=== PATIENT | female | born 1990 | race African-American/Black ===

== ENCOUNTER 2016-08-21 19:23 | Emergency (ER) | payer MEDICAID ==
[~2016-08-21] VITALS: Ht 165.1 cm; Wt 53.0 kg
[2016-08-21 19:53] VITALS: BP 109/78
[2016-08-21] MEDS ORDERED: BACITRACIN ZINC OINT UDPKT TOP ONE (20:00)
[2016-08-21] MEDS ORDERED: KETOROLAC 60MG/2ML VIAL IM ONE (22:15)
== END 2016-08-22 02:14 | disposition left against medical advice (07) ==
LOC: ER 19:23
DX: S81.811D Laceration without foreign body, right lower leg, subsequent encounter (principal); X58.XXXD Exposure to other specified factors, subsequent encounter; Y92.89 Other specified places as the place of occurrence of the external cause; Y99.8 Other external cause status
CPT/HCPCS: 81025; 99282; J1885

== ENCOUNTER 2016-08-22 15:17 | Emergency (ER) | payer MEDICAID ==
[~2016-08-22] VITALS: Ht 165.1 cm; Wt 55.0 kg
[2016-08-22 15:30] VITALS: BP 115/77
== END 2016-08-22 20:47 | disposition left against medical advice (07) ==
LOC: ER 20:02
DX: S91.011D Laceration without foreign body, right ankle, subsequent encounter (principal); Z53.21 Procedure and treatment not carried out due to patient leaving prior to being seen by health care provider; X58.XXXA Exposure to other specified factors, initial encounter; Y93.89 Activity, other specified; Y99.8 Other external cause status; Y92.89 Other specified places as the place of occurrence of the external cause

== ENCOUNTER 2024-07-14 23:51 | Emergency (ER) | payer MEDICAID ==
[~2024-07-14] VITALS: Ht 167.6 cm; Wt 73.0 kg
[2024-07-14 23:59] VITALS: O2SAT 100
[2024-07-15 00:13] VITALS: BP 135/90; PULSE 85; RESP 20; TEMP 36.9; O2SAT 99
[2024-07-15] MEDS: DICYCLOMINE HCL 10MG/ML 2ML VIAL IM STA (00:50)
[2024-07-15 00:56] LABS: BASOPHILS % 0.6 % (0.0-2.0); EOSINOPHILS % 0.2 % (0.0-5.0); HEMATOCRIT. 37.8 % (36.0-48.0); HEMOGLOBIN. 12.7 g/dL (12.0-16.0); LYMPHOCYTES % 18.3 % (20.0-50.0); MEAN CORPUSCULAR HEMOGLOBIN 30.1 pg (28.0-32.0); MEAN CORPUSCULAR HGB CONC 33.6 g/dL (31.0-37.0); MEAN CORPUSCULAR VOLUME 89.4 fL (81.0-99.0); MEAN PLATELET VOLUME 8.1 fl (7.4-10.4); MONOCYTES % 5.2 % (2.0-8.0); NEUTROPHILS % 75.7 % (40.0-76.0); PLATELET 272 x1000/uL (130-400); RED BLOOD CELL COUNT 4.23 mill/uL (4.2-5.4)
[2024-07-15] MEDS: FAMOTIDINE 20MG/2ML VIAL IV ONE (01:00)
[2024-07-15 01:11] LABS: CHLORIDE 108 mEq/L (98-107); POTASSIUM 3.7 mEq/L (3.5-5.1); SODIUM 142 mEq/L (136-145)
[2024-07-15 01:12] LABS: CALCIUM 9.7 mg/dL (8.7-10.4); CARBON DIOXIDE 27 mEq/L (21-32)
[2024-07-15 01:17] LABS: GLUCOSE 108 mg/dL (70-105); UREA NITROGEN BLOOD 12 mg/dL (9-23)
[2024-07-15 01:18] LABS: ETHANOL BLOOD < 10 mg/dL (<10)
[2024-07-15 01:19] LABS: ALANINE AMINOTRANSFERASE 15 IU/L (10-49); ALBUMIN 5.1 g/dL (3.2-4.8); ASPARTATE AMINOTRANSFERASE 20 IU/L (<34); BILIRUBIN DIRECT 0.2 mg/dL (<=3.0); BILIRUBIN TOTAL 0.5 mg/dL (0.1-1.0)
[2024-07-15 01:20] LABS: PROTEIN TOTAL 8.1 g/dL (6.0-8.3)
[2024-07-15 01:42] LABS: HCG SCREEN NEGATIVE
[2024-07-15] MEDS: SODIUM CHLORIDE 0.9% 1,000 ML IV ONE (02:12)
[2024-07-15] MEDS: ONDANSETRON HCL 4MG/2ML INJ IV ONE (02:12)
== END 2024-07-15 02:30 | disposition home or self-care (01) ==
LOC: ER 23:51
DX: R11.2 Nausea with vomiting, unspecified (principal); F12.90 Cannabis use, unspecified, uncomplicated
CPT/HCPCS: 99283; 80076; 80048; 80320; 84703; 83690; 85025; 36415; 96372; J0500; J2405; J7030; Z7610 ×2; J3490; G0480

== ENCOUNTER 2024-09-22 12:47 | Emergency (ER) | payer MEDICAID ==
[~2024-09-22] VITALS: Ht 160 cm; Wt 72.5 kg
[2024-09-22 12:52] VITALS: O2SAT 99
[2024-09-22 13:21] LABS: CLARITY URINE CLEAR (CLEAR); COLOR URINE YELLOW (YELLOW); GLUCOSE URINE NEGATIVE (NEGATIVE); KETONES URINE TRACE (NEGATIVE); LEUKOCYTE ESTERASE URINE NEGATIVE (NEGATIVE); NITRITE URINE NEGATIVE (NEGATIVE); OCCULT BLOOD URINE NEGATIVE (NEGATIVE); PH URINE 6.5 (4.5-8.0); PROTEIN URINE TRACE (NEGATIVE); SPECIFIC GRAVITY URINE 1.027 (1.005-1.030); UROBILINOGEN URINE 1.0 E.U./dL (0.2-1.0)
[2024-09-22 13:26] LABS: BASOPHILS % 0.8 % (0.0-2.0); EOSINOPHILS % 0.8 % (0.0-5.0); HEMATOCRIT. 36.1 % (36.0-48.0); HEMOGLOBIN. 11.9 g/dL (12.0-16.0); LYMPHOCYTES % 43.4 % (20.0-50.0); MEAN PLATELET VOLUME 8.3 fl (7.4-10.4); MONOCYTES % 10.6 % (2.0-8.0); NEUTROPHILS % 44.4 % (40.0-76.0); PLATELET 281 x1000/uL (130-400); RED BLOOD CELL COUNT 4.07 mill/uL (4.2-5.4); RED CELL DISTRIBUTION WIDTH 14.1 % (11.6-14.6)
[2024-09-22] MEDS ORDERED: ONDANSETRON HCL 4MG/2ML INJ IV NR (13:30)
[2024-09-22] MEDS ORDERED: ONDANSETRON HCL 4MG/2ML INJ IV ONE (13:30)
[2024-09-22] MEDS ORDERED: ACETAMINOPHEN 500MG TABLET PO ONE (13:30)
[2024-09-22] MEDS ORDERED: ACETAMINOPHEN 500MG TABLET PO NR (13:30)
[2024-09-22 13:39] LABS: CREATININE 0.8 mg/dL (0.6-1.0); UREA NITROGEN BLOOD 8 mg/dL (9-23)
[2024-09-22 13:41] LABS: ASPARTATE AMINOTRANSFERASE 13 IU/L (<34); BILIRUBIN DIRECT < 0.1 mg/dL (<=3.0); BILIRUBIN TOTAL 0.4 mg/dL (0.1-1.0); PROTEIN TOTAL 7.6 g/dL (6.0-8.3)
[2024-09-22 13:49] LABS: MUCUS URINE 1+ /lpf (< = 2+); SQUAMOUS EPITHELIAL CELL URINE 3+ /lpf (RARE/1+)
[2024-09-22 13:51] LABS: HCG SCREEN POSITIVE
[2024-09-22 13:53] LABS: BACTERIA URINE 1+
[2024-09-22 13:54] LABS: RBC URINE NONE SEEN /hpf (0-2); WBC URINE 0-2 /hpf (0-2)
[2024-09-22] MEDS: SODIUM CHLORIDE 0.9% 1,000 ML IV ONE (15:56)
[2024-09-22] MEDS ORDERED: ONDANSETRON 4MG ODT PO ONE (16:00)
[2024-09-22 16:46] VITALS: BP 117/88; PULSE 95; RESP 18; TEMP 36.9; O2SAT 100
== END 2024-09-22 16:47 | disposition home or self-care (01) ==
LOC: ER 12:47
DX: O21.9 Vomiting of pregnancy, unspecified (principal); R10.2 Pelvic and perineal pain; Z3A.10 10 weeks gestation of pregnancy
CPT/HCPCS: 99284; 76856; 80076; 80048; 81003; 81025; 84703; 84702; 83690; 85025; 36415; J7030

== ENCOUNTER 2024-10-08 17:40 | Emergency (ER) | payer MEDICAID ==
[~2024-10-08] VITALS: Ht 160 cm; Wt 69.0 kg
[2024-10-08 17:43] VITALS: O2SAT 99
[2024-10-08] MEDS ORDERED: CARB-274 EACH EAR (19:03)
[2024-10-08 19:11] VITALS: BP 103/67; PULSE 92; RESP 18; TEMP 36.9; O2SAT 99
== END 2024-10-08 19:34 | disposition home or self-care (01) ==
LOC: ER 18:03
DX: H61.23 Impacted cerumen, bilateral (principal); J45.909 Unspecified asthma, uncomplicated; F12.90 Cannabis use, unspecified, uncomplicated; Z98.890 Other specified postprocedural states
CPT/HCPCS: 81025; 99282

== ENCOUNTER 2024-11-22 16:58 | Emergency (ER) | payer MEDICAID ==
[~2024-11-22] VITALS: Ht 160 cm; Wt 78.0 kg
[~2024-11-22 16:58] MED LIST: CARB-274 EACH EAR
[2024-11-22 17:05] VITALS: O2SAT 100
[2024-11-22] MEDS ORDERED: ACET-2708 MT (17:30)
[2024-11-22] MEDS ORDERED: LIDO5CRE26 TP (17:30)
[2024-11-22] MEDS: ACETAMINOPHEN 500MG TABLET PO ONE (18:10)
[2024-11-22 18:14] VITALS: BP 111/70; PULSE 100; RESP 18; TEMP 36.9; O2SAT 100
== END 2024-11-22 19:23 | disposition home or self-care (01) ==
LOC: ER 16:58
DX: K62.89 Other specified diseases of anus and rectum (principal); J45.909 Unspecified asthma, uncomplicated; Z98.890 Other specified postprocedural states
CPT/HCPCS: 81025; 99283

== ENCOUNTER 2025-02-12 04:46 | Emergency (ER) | payer MEDICAID ==
[~2025-02-12] VITALS: Ht 167.6 cm; Wt 100.0 kg
[~2025-02-12 04:46] MED LIST changes: +ACET-2708 MT; +LIDO5CRE26 TP
[2025-02-12 06:12] LABS: BASOPHILS % 0.3 % (0.0-2.0); EOSINOPHILS % 1.3 % (0.0-5.0); HEMATOCRIT. 32.0 % (36.0-48.0); HEMOGLOBIN. 10.5 g/dL (12.0-16.0); LYMPHOCYTES % 17.1 % (20.0-50.0); MEAN PLATELET VOLUME 9.3 fl (7.4-10.4); MONOCYTES % 9.7 % (2.0-8.0); NEUTROPHILS % 71.6 % (40.0-76.0); PLATELET 215 x1000/uL (130-400); RED BLOOD CELL COUNT 3.62 mill/uL (4.2-5.4); RED CELL DISTRIBUTION WIDTH 15.3 % (11.6-14.6)
[2025-02-12 06:25] LABS: CREATININE 0.6 mg/dL (0.6-1.0); TROPONIN I HIGH SENSITIVITY < 4 ng/L (3.0-34)
[2025-02-12 06:26] LABS: PROTEIN TOTAL 6.6 g/dL (6.0-8.3); UREA NITROGEN BLOOD 5 mg/dL (9-23)
[2025-02-12 06:27] LABS: ASPARTATE AMINOTRANSFERASE 13 IU/L (<34)
[2025-02-12 06:28] LABS: BILIRUBIN TOTAL 0.2 mg/dL (0.1-1.0)
[2025-02-12] MEDS: ACETAMINOPHEN 325MG TABLET PO ONE (07:11)
[2025-02-12] MEDS: IOHEXOL-350 100 ML BOTTLE ONE (08:27)
[2025-02-12 09:15] VITALS: BP 116/81; PULSE 98; RESP 16; TEMP 36.7; O2SAT 98
== END 2025-02-12 10:00 | disposition short-term general hospital (02) ==
LOC: ER 04:46
DX: O99.513 Diseases of the respiratory system complicating pregnancy, third trimester (principal); O26.893 Other specified pregnancy related conditions, third trimester; R10.9 Unspecified abdominal pain; R07.89 Other chest pain; R06.02 Shortness of breath; R10.20 Pelvic and perineal pain unspecified side; J45.909 Unspecified asthma, uncomplicated; Z87.891 Personal history of nicotine dependence; Z3A.32 32 weeks gestation of pregnancy; Z79.899 Other long term (current) drug therapy
CPT/HCPCS: 99285; 93970; 71275; 71045; 80053; 84702; 85025; 85379; 84484; 36415; 76815; 93005; Q9967

== ENCOUNTER 2025-03-06 11:43 | Emergency (ER) | payer MEDICAID ==
[~2025-03-06] VITALS: Ht 160 cm; Wt 91.0 kg
[2025-03-06 11:49] VITALS: O2SAT 99
[2025-03-06 12:23] LABS: CLARITY URINE CLEAR (CLEAR); COLOR URINE YELLOW (YELLOW); GLUCOSE URINE NEGATIVE (NEGATIVE); KETONES URINE NEGATIVE (NEGATIVE); LEUKOCYTE ESTERASE URINE NEGATIVE (NEGATIVE); NITRITE URINE NEGATIVE (NEGATIVE); OCCULT BLOOD URINE NEGATIVE (NEGATIVE); PH URINE 6.5 (4.5-8.0); PROTEIN URINE TRACE (NEGATIVE); SPECIFIC GRAVITY URINE 1.016 (1.005-1.030); UROBILINOGEN URINE 0.2 E.U./dL (0.2-1.0)
[2025-03-06 12:31] LABS: BASOPHILS % 0.2 % (0.0-2.0); EOSINOPHILS % 0.9 % (0.0-5.0); HEMATOCRIT. 34.7 % (36.0-48.0); HEMOGLOBIN. 11.3 g/dL (12.0-16.0); LYMPHOCYTES % 31.8 % (20.0-50.0); MEAN PLATELET VOLUME 9.6 fl (7.4-10.4); MONOCYTES % 9.1 % (2.0-8.0); NEUTROPHILS % 58.0 % (40.0-76.0); PLATELET 189 x1000/uL (130-400); RED BLOOD CELL COUNT 3.92 mill/uL (4.2-5.4); RED CELL DISTRIBUTION WIDTH 14.6 % (11.6-14.6)
[2025-03-06] MEDS: LACTATED RINGERS 1,000 ML IV SCH (12:37)
[2025-03-06 12:47] LABS: SQUAMOUS EPITHELIAL CELL URINE 2+ /lpf (RARE/1+)
[2025-03-06 12:48] LABS: BACTERIA URINE 1+; RBC URINE NONE SEEN /hpf (0-2); WBC URINE NONE SEEN /hpf (0-2)
[2025-03-06 12:52] LABS: CREATININE 0.7 mg/dL (0.6-1.0)
[2025-03-06 12:53] LABS: PROTEIN TOTAL 7.4 g/dL (6.0-8.3); UREA NITROGEN BLOOD 6 mg/dL (9-23)
[2025-03-06 12:54] LABS: ASPARTATE AMINOTRANSFERASE 17 IU/L (<34)
[2025-03-06 12:55] LABS: BILIRUBIN DIRECT < 0.1 mg/dL (<=3.0); BILIRUBIN TOTAL 0.2 mg/dL (0.1-1.0)
[2025-03-06 13:24] VITALS: BP 118/80; PULSE 85; RESP 15; TEMP 37; O2SAT 97
== END 2025-03-06 13:58 | disposition short-term general hospital (02) ==
LOC: ER 11:43
DX: O26.893 Other specified pregnancy related conditions, third trimester (principal); O99.513 Diseases of the respiratory system complicating pregnancy, third trimester; R10.9 Unspecified abdominal pain; Z3A.35 35 weeks gestation of pregnancy
CPT/HCPCS: 36415; 76815; 80048; 80076; 81003; 84702; 85025; 96360; 99285